=== PATIENT | male | born 1975 | race African-American/Black ===

== ENCOUNTER 2017-01-05 10:16 | Emergency (ER) | payer OTHER ==
--- NOTE | ~2017-01-05 | CR172 ---
[facility] A Service of [facility] RADIOLOGY TEXT RESULTS PATIENT: BRUNO LYNN LOCATION: [facility] : 75 UNIT #: [id number] AGE: [address]: Allyn Choudhary SEX: M ORDER DR: [id number] [facility] [address] [place], [place] [address] [id number] E MR#: [id number] Acc #: [id number] NAME: BRUNO LYNN : 1975 SEX: M STUDY DATE/TIME: 01/05/2017 0955 UNIT: [facility] ROOM: STUDY DESCRIPTION: CR Knee 3 Views Lt Attending Physician: Allyn Choudhary P.A.-C. Ordering Physician: Allyn Choudhary P.A.-C. Primary Care Physician: No Primary Care Physician MEDICAL IMAGING REPORT This report is preliminary unless electronic signature is present EXAM Left knee, 3 views, 01/05/2017, 0955 hours. CLINICAL HISTORY 41-year-old with left knee pain following a fall a few days ago. COMPARISON None FINDINGS AP, lateral, and sunrise views demonstrate a very small suprapatellar bursa effusion without lipohemarthrosis. There is tricompartmental degenerative change with mild joint space loss and spurring in all 3 compartments. There is no fracture or loose body. IMPRESSION Small suprapatellar bursa effusion without lipohemarthrosis. There is mild spurring in all 3 compartments of the knee. There is no fracture or loose body. Dictated by... Malou De La Torre M.D. THIS IS AN ELECTRONICALLY VERIFIED REPORT Malou De La Torre M.D. at 01/05/2017 11:56 AM LONNIE/jeffrey TD: 01/05/2017 11:20 JOB #: [id number] MEDICAL IMAGING REPORT [facility] A Service [facility] RADIOLOGY TEXT RESULTS PATIENT: BRUNO LYNN LOCATION: [facility] #: [id number] : 75 UNIT #: [id number] AGE: [address]: Allyn Choudhary SEX: M ORDER DR: [place] 1 of 1 COPY
[~2017-01-05 10:16] MED LIST: DOXYCYCLINE PO; KETOPROFEN PO
== END 2017-01-05 10:39 | disposition home or self-care (01) ==
LOC: CFTX 10:16
DX: M70.52 Other bursitis of knee, left knee (principal); I10 Essential (primary) hypertension
CPT/HCPCS: 29530; 73562; 99283